=== PATIENT | female | born 2000 | race Two or more races ===

== ENCOUNTER → 2024-07-10 | Outpatient (CLI) | payer OTHER, SELFPAY ==
--- NOTE | 2024-07-10 12:23 | XR_ITS ---
EXAMINATION: Ankle, right 3 views . Technique: Ankle AP, oblique, lateral 3 views Date and time of exam: July 10, 2024 1231 hours INDICATIONS: Patient fell today with into the ankle, ankle pain. FINDINGS: No fracture or dislocation. No foreign body IMPRESSION: No fracture or dislocation
== END | disposition home or self-care (01) ==
PROVIDERS: PCP Nurse Practitioner Family; Referring Provider Nurse Practitioner Family; Visit Provider Nurse Practitioner Family
DX: S93.401A Sprain of unspecified ligament of right ankle, initial encounter (principal); W19.XXXA Unspecified fall, initial encounter
CPT/HCPCS: 73610

== ENCOUNTER 2024-10-13 02:58 | Emergency (ER) | payer BC, SELFPAY ==
--- NOTE | 2024-10-13 03:14 | XR_ITS ---
Examination: Complete OB ultrasound, less than 14 weeks, transabdominal Date and time of exam: October 13, 2024 0424 hrs. Indications: Vaginal bleeding and pelvic cramping beginning 2 days ago. Technique: Obstetrical ultrasound images less than 14 weeks performed via transabdominal imaging Findings: Uterus 8.5 cm, endometrial stripe 0.92 cm No uterine mass or intrauterine gestation Ovaries obscured by bowel gas Impression: No uterine mass or intrauterine gestation
--- NOTE | 2024-10-13 03:14 | PD.EDVAGBL ---
ED OB Contraction Preg RMI/HPI General Chief complaint: Vaginal Bleeding Stated complaint: 6/3WKS PREG, SPOTTING, Time Seen by Provider: 10/13/24 03:44 Arrival date/time: 10/13/24 02:58 RME / HPI RME / HPI Narrative: See [facility] for Dr. Okeefe's HPI documentation. Related Data Previous Rx's ?Medication ?Instructions ?Recorded ibuprofen 800 mg tablet 800 mg PO TID PRN pain #30 tabs 09/04/19 cefdinir 300 mg capsule 300 mg PO BID #14 caps 10/15/24 Allergies Allergy/AdvReac Type Severity Reaction Status Date / Time No Known Allergies Allergy Verified 09/04/19 13:23 Review of Systems Review of Systems Systems Reviewed: All systems reviewed, normal except as documented ED Exam Narrative Physical exam: See [facility] for Dr. Okeefe's physical exam documentation. Course Quality Measures none Orders Category Date Time Status US OB <= 14 weeks fetus Stat Exams 10/13/24 03:14 Completed BMP [Basic Metabolic Panel] Stat Lab 10/13/24 03:33 Completed Beta HCG,Quantitative Stat Lab 10/13/24 03:33 Completed CBC Stat Lab 10/13/24 03:33 Completed Magnesium Stat Lab 10/13/24 03:33 Completed Rh Testing Only Stat Lab 10/13/24 03:33 Completed TSH [Thyroid Stimulating Hormone] Stat Lab 10/13/24 03:33 Completed UA, C/S IF [Urinalysis, C/S if Indicated] Stat Lab 10/13/24 03:40 Completed Urine Culture Stat Lab 10/13/24 03:40 Completed Vital Signs Vital signs: Vital Signs Temperature 98.2 F 10/13/24 03:16 Pulse Rate 76 10/13/24 03:16 Respiratory Rate 18 10/13/24 03:16 Blood Pressure 168/110 H 10/13/24 03:16 Pulse Oximetry (%) 100 10/13/24 03:16 Oxygen Delivery Method Room Air 10/13/24 03:16 Vaginal Bleeding [facility] Narrative [facility] Narrative: This section includes all my notes and documentations, including HPI, PE, and ED course. Tobin Okeefe MD HPI: 24yo female who is ~6 weeks gestation here with cramping and vaginal spotting since yesterday. LMP was 08/25/24. No other complaints reported. ROS: All negative except as documented in HPI. Physical Exam: General: Alert and oriented. No acute distress when remaining still. Eyes: Conjunctivae and lids clear. ENT: No nasal congestion. Neck: Supple. Heart: RRR. Lungs: No respiratory distress. Good air movement. No rhonchi, wheezing, rales. Abdomen: Soft and nontender. Normal bowel sounds. No distension. No rebound or guarding. Back: No CVA tenderness. Skin: Warm and dry. Neuro: Alert and oriented X 3. I reviewed all diagnostic test results. My review of the ultrasound report is no IUP. Blood tests are unremarkable, hCG 54. UA remarkable for positive nitrites, positive leukocyte esterase, 20 RBCs, 13 WBCs, and rare bacteria. At this point, diagnoses include: Threatened miscarriage UTI Prescribed ABX and recommended expectant management. Based on my best medical judgment, made decision no further evaluation or treatment indicated at this time. Patient understands and agrees to the discharge instructions customized and printed, see below. Discharge Instructions from Dr. Okeefe printed for you: Discharge Instructions from Dr. Okeefe printed for you: 1. After evaluation, your blood test is positive. 2. But there is no obvious in your uterus. 3. Your may be too early to be seen on ultrasound. Or you may have had a miscarriage. 4. Take Cefdinir for UTI. 5. See a private doctor on 10/16/2024 for recheck. Ask to review all test results and official radiology reports, to make sure you receive all necessary follow-ups and monitoring, including a repeat hCG level (54). In normal , hCG level doubles every 2 to 3 days. Ask for help repeating ultrasound in 1 to 2 weeks (earlier ultrasound will not help). 6. Seek immediate medical care with intolerable pain, extremely heavy vaginal bleeding (soaking more than 3 pads per hour), or with any concerns. Tobin Okeefe MD Patient data External records reviewed:: [facility] previous records (Per chart review, patient has no relevant previous ED visits.) Clinical information provided by:: patient Social determinants that could affect healthcare access:: none Patient has the following chronic illnesses:: none How is presenting disease/condition affected by chronic disease/condition?: no chronic disease Evaluation data The following diagnostics were reviewed and interpreted by me:: lab results and radiology exam(s) Lab and/or radiology exams considered but not ordered:: none Interpretation Summary: I reviewed all diagnostic test results. My review of the ultrasound report is no IUP. Blood tests are unremarkable, hCG 54. UA remarkable for positive nitrites, positive leukocyte esterase, 20 RBCs, 13 WBCs, and rare bacteria. Medications / Prescriptions Medications or Prescriptions considered but not ordered:: none Medication administrations:: none Consultations Consultation(s) initiated? (list below): No Diagnosis Vaginal Bleeding Differential Diagnosis: threatened , incomplete and other (vaginal bleeding in early ) Most likely diagnosis given after review of the tests above:: Threatened miscarriage UTI Admission Indicated Admission indicated?: not indicated Explain why admission is indicated or not indicated:: With no condition needing emergent intervention, there was no indication for admission. Admission Request Was there a request for admission?: No Disposition Plan Disposition Plan: Discharge Discharge Attestation Discharge Attestation: The patient and all family members were given an opportunity to ask questions and understood the discharge instructions. Discharge instructions specifically effects, indications for sooner follow up or return to the emergency department, and the expected course of current diagnosis. Patient condition: Stable Discharge Plan Plan Patient Disposition: HOME (Self Care) Prescriptions/Referrals Prescriptions/Med Rec: New cefdinir 300 mg capsule 300 mg PO BID Qty: 14 0RF No Action ibuprofen 800 mg tablet 800 mg PO TID PRN (Reason: pain) Qty: 30 0RF Referrals: No Primary/Family,Physician [Primary Care Provider] - In 1 week Problem List Clinical Impression: Threatened miscarriage, UTI (urinary tract infection) Patient/Caregiver Discharge Instructions Discharge Activity: activity as tolerated Education Materials: ED Possible Miscarriage ... Additional Instructions: Discharge Instructions from Dr. Okeefe printed for you: 1. After evaluation, your blood test is positive. 2. But there is no obvious in your uterus. 3. Your may be too early to be seen on ultrasound. Or you may have had a miscarriage. 4. Take Cefdinir for UTI. 5. See a private doctor on 10/16/2024 for recheck. Ask to review all test results and official radiology reports, to make sure you receive all necessary follow-ups and monitoring, including a repeat hCG level (54). In normal , hCG level doubles every 2 to 3 days. Ask for help repeating ultrasound in 1 to 2 weeks (earlier ultrasound will not help). 6. Seek immediate medical care with intolerable pain, extremely heavy vaginal bleeding (soaking more than 3 pads per hour), or with any concerns. Print Language: [place] Citizen Stand Alone Forms: [facility] Award Info., Patient Portal Info Letter
[2024-10-13 03:16] VITALS: BP 168/110; PULSE 76; RESP 18; TEMP 36.8; O2SAT 100
[2024-10-13 03:25] VITALS: BMI 43.8
[2024-10-13 03:52] LABS: Basophils # (Auto) 0.0 Thou/mm3 (0.0-0.2); Basophils % (Auto) 0 % (0-2.5); Eosinophils # (Auto) 0.3 Thou/mm3 (0.0-0.5); Eosinophils % (Auto) 3 % (0-10); Hematocrit 40.4 % (36.0-46.0); Hemoglobin 13.3 g/dL (12.0-16.0); Immature Granulocytes Auto 0.03 Thou/mm3 (0.00-0.00); Lymphocytes # (Auto) 2.7 Thou/mm3 (1.0-4.8); Lymphocytes % (Auto) 27 % (10-50); Mean Corpuscular HGB Conc 32.9 g/dl (31.0-37.0); Mean Corpuscular Hemoglobin 28.4 pg (25.0-35.0); Mean Corpuscular Volume 86 fL (80-100); Monocytes # (Auto) 0.8 Thou/mm3 (0.0-0.8); Monocytes % (Auto) 9 % (0-12); Neutrophils # (Auto) 6.0 Thou/mm3 (1.8-7.7); Neutrophils % (Auto) 61 % (37-80); Nucleated Red Blood Cell # 0.00 Thou/mm3 (0.00-0.00); Nucleated Red Blood Cell % 0 /100 WBC (0); Platelet Count 435 Thou/mm3 (140-440); RDW Standard Deviation 45.2 fL (36.4-46.3); Red Blood Count 4.69 Miln/mm3 (4.00-5.20); White Blood Count 9.9 Thou/mm3 (3.6-11.0)
[2024-10-13 04:14] LABS: Collection Type, Urine Clean Catch
[2024-10-13 04:17] LABS: Anion Gap 10 (7-16); BUN/Creatinine Ratio 8 Ratio (12-20); Beta HCG,Quantitative 54 mIU/mL (<5.0); Blood Urea Nitrogen < 5 mg/dL (9-23); Calcium 10.1 mg/dL (8.3-10.6); Carbon Dioxide 23.8 mMol/L (20.0-31.0); Chloride 107 mMol/L (98-107); Creatinine (Component) 0.6 mg/dL (0.6-1.3); Estimated Creatinine Clearance 198.6 mL/min (>60); Glucose 97 mg/dL (74-106); Magnesium 1.7 mg/dL (1.6-2.6); Osmolality,Calculated 278 (275-295); Potassium 4.4 mMol/L (3.4-5.1); Sodium 141 mMol/L (136-145); Thyroid Stimulating Hormone 4.74 uIU/mL (0.55-4.78); eGFR > 60 See Note
[2024-10-13 04:25] LABS: Bacteria,Urine Rare; Bilirubin,Urine Negative (Negative); Blood,Urine 3+ (Negative); Calcium Oxalate Crystals,Urine 1+; Clarity,Urine Clear (Clear/Hazy); Color,Urine Yellow (Lt Yel-Yel); Glucose, Urine Negative (Negative); Ketones,Urine Negative (Negative); Leukocyte Esterase,Urine Positive (Negative); Nitrite,Urine Positive (Negative); PH,Urine 6.0 (5.0-7.0); Protein,Urine Trace (Neg - Trace); RBC,Urine 20 /hpf (0-3); Specific Gravity,Urine 1.033 (1.001-1.035); Squamous Epithelial Cell,Urine 6 /hpf (0-5); Urobilinogen,Urine Negative mg/dL (0.0-1.0); WBC,Urine 13 /hpf (0-5)
[2024-10-13 04:33] LABS: Culture Indicated,Urine Yes
--- NOTE | 2024-10-13 05:00 | PRELIM_ITS ---
Pelvic ultrasound (transabdominal). October 13, 2024 0424 hours Clinical history: Cramping and spotting (GA 6 6/7 weeks) Technique: Real-time, grayscale, transabdominal and transvaginal pelvic ultrasound was performed using Duplex scanning including arterial inflow, venous outflow, color and spectral Doppler. Comparison: None Findings: The uterus is normal in size measuring 8.5 x 4.8 x 6.1 cm. The endometrium is unremarkable and measures 0.9 cm. There is no intrauterine gestational sac. Both ovaries are not demonstrated. There is no adnexal mass. There is no free fluid on the submitted images. Impression: No intrauterine gestational sac. In the setting of positive beta hCG, diagnostic considerations include very early intrauterine , recent or occult ectopic gestation. Recommend correlation with quantitative beta hCG and close sonographic follow-up. Non-visualized ovaries. Report Electronically Signed By: Ashish Richardson 10/13/2024 4:59:34 AM [EST]
== END 2024-10-13 05:17 | disposition home or self-care (01) ==
PROVIDERS: Emergency Provider Emergency Medicine
DX: O20.0 Threatened abortion (principal); O23.41 Unspecified infection of urinary tract in pregnancy, first trimester; Z3A.01 Less than 8 weeks gestation of pregnancy
CPT/HCPCS: 36415; 76801; 80048; 81001; 83735; 84443; 84702; 85025; 86901; 87077; 87086; 87186; 99283